=== PATIENT | female | born 1990 | race Caucasian/White ===

== ENCOUNTER 2016-09-10 19:16 | Emergency (ER) | payer SELFPAY ==
--- NOTE | 2016-09-10 20:26 | RADIOLOGY REPORT (SQ) ---
EXAM DESCRIPTION: HAND RIGHT 3 VIEWS COMPLETED DATE/TIME: 09/10/2016 8:13 pm REASON FOR STUDY: PAIN COMPARISON: None. EXAM PARAMETERS: NUMBER OF VIEWS: Three views. TECHNIQUE: AP, lateral and oblique radiographic images acquired of the right hand. LIMITATIONS: None. FINDINGS: MINERALIZATION: Normal. BONES: No acute fracture or dislocation. No worrisome bone lesions. JOINTS: No effusions. SOFT TISSUES: No soft tissue swelling. No foreign body. OTHER: No other significant finding. IMPRESSION: NEGATIVE STUDY OF THE RIGHT HAND. NO RADIOGRAPHIC EVIDENCE OF ACUTE INJURY. TECHNICAL DOCUMENTATION: JOB ID: [id number] [employer]- All Rights Reserved
[2016-09-10] MEDS ORDERED: LIDOCAINE 1% INJ-PF (10 MG/ML) 30 ML SDV INJ ONE (20:43)
[2016-09-10] MEDS ORDERED: IBUPROFEN 600 MG TABLET PO ONE (21:14)
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
[2016-09-10 21:26] VITALS: BP 119/60
== END 2016-09-10 21:26 | disposition home or self-care (01) ==
LOC: ER 19:16
DX: S60.511A Abrasion of right hand, initial encounter (principal); W22.09XA Striking against other stationary object, initial encounter; F17.200 Nicotine dependence, unspecified, uncomplicated; Z88.2 Allergy status to sulfonamides
CPT/HCPCS: 99283

== ENCOUNTER 2020-04-28 18:25 | Emergency (ER) | payer OTHER ==
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
--- NOTE | 2020-04-28 19:38 | EKG REPORT ---
SEVERITY:- BORDERLINE ECG - SINUS RHYTHM BORDERLINE PROLONGED QT INTERVAL : Confirmed by: Raleigh Chen MD 28-Apr-2020 19:36:26
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
[2020-04-28 23:04] VITALS: BP 116/63
== END 2020-04-28 23:42 | disposition home or self-care (01) ==
LOC: ER 18:25
DX: S80.02XA Contusion of left knee, initial encounter (principal); R07.89 Other chest pain; V47.5XXA Car driver injured in collision with fixed or stationary object in traffic accident, initial encounter; Z88.2 Allergy status to sulfonamides
CPT/HCPCS: 93005; 93010; 99284